=== PATIENT | male | born 1980 | race Caucasian/White ===

== ENCOUNTER 2018-03-21 21:42 | Emergency (ER) | payer OTHER ==
[~2018-03-21] VITALS: Ht 172.7 cm; Wt 68.0 kg
[2018-03-21 21:46] VITALS: BP 148/91
--- OUTSIDE RECORDS SUMMARY | 2018-03-21 21:48 | XMS REPORT ---
Author Author DIEUDONNE Ross [facility] Address Unknown Care Team Providers Care Per Diem Physical Therapist Assistant Name Role Phone DIEUDONNE Ross Unavailable PROBLEMS Unknown Problems ALLERGIES Substance Reaction Event Type Date Status N.K.D.A. Unknown Non Drug Allergy Jun, Unknown SOCIAL HISTORY No smoking Hx information available PLAN OF CARE Activity Details Follow Up prn Reason:filling/O&R #30 VITAL SIGNS MEDICATIONS No Known Medications RESULTS No Results PROCEDURES Procedure Date Ordered Related Diagnosis Body Site LTD ORAL EVALUATION - PROBLEM FOCUS Jul 12, 2016 INTRAORL-PERIAPICAL 1 FILM [id number] Jul 12, 2016 Billing Notes on claim Jul 12, 2016 IMMUNIZATIONS No Known Immunizations
[2018-03-21] MEDS ORDERED: LACTATED RINGERS 1,000 ML IV ONE ×2 (22:06→23:11)
--- NOTE | 2018-03-21 22:11 | ED Abdominal Pain ---
General Chief Complaint: Abdominal/GI Problems Stated Complaint: R SIDE ABD PAIN OFF AND ON 2 DAYS,WORSE TODAY Nursing Triage Note: RLQ PAIN WITH SOME NAUSEA. PT DENIES FEVER. PT STATES HE HAS BEEN CONSITPATED FOR 2 DAYS. Sepsis Screen: No Definite Risk Source of Information: Patient Exam Limitations: No Limitations History of Present Illness Date Seen by Provider: Mar 21, 2018 Time Seen by Provider: 21:59 Initial Comments PT ARRIVES VIA POV FROM HOME STATES HE HAS HAD AN "UPSET STOMACH" FOR THE LAST COUPLE OF DAYS--NAUSEA AND PAIN IN MID ABDOMEN STATES SINCE THIS AFTERNOON HIS SYMPTOMS HAVE GOTTEN WORSE AND PAIN IS NOW IN RLQ ALSO HAS MILD RIGHT FLANK PAIN CONTINUES TO HAVE NAUSEA, BUT NO VOMITING HAS CONTINUED TO EAT AND DRINK--HAD 1 BEER TONIGHT AFTER WORK AND HAD BAKED POTATO AND PART OF A GRILLED CHEESE SANDWICH A COUPLE OF HOURS AGO HAS BEEN CONSTIPATED THE LAST COUPLE OF DAYS, LAST BM WAS YESTERDAY MORNING NO FEVER NO URINARY SYMPTOMS PT STATES HE DID BRUISE HIS RIGHT LOWER RIBS A COUPLE OF WEEKS AGO, BUT THOSE SYMPTOMS HAVE IMPROVED. HAS NOT TAKEN ANYTHING FOR SYMPTOMS Allergies and Home Medications Allergies Coded Allergies: No Known Drug Allergies (Unverified , 03/21/18) Patient Home Medication List Home Medication List Reviewed: Yes Review of Systems Review of Systems Constitutional: no symptoms reported; No chills, No diaphoresis, No fever EENTM: No Symptoms Reported Respiratory: No Symptoms Reported Cardiovascular: No Symptoms Reported Gastrointestinal: See HPI, Abdominal Pain, Constipated; Denies Diarrhea; Nausea ; Denies Poor Fluid Intake, Denies Vomiting Genitourinary: See HPI; Denies Burning, Denies Discharge, Denies Drainage, Denies Frequency; Flank Pain; Denies Hematuria, Denies Pain, Denies Urgency Musculoskeletal: see HPI, back pain Skin: no symptoms reported Psychiatric/Neurological: No Symptoms Reported Endocrine: No Symptoms Reported Hematologic/Lymphatic: No Symptoms Reported Past Xuimspc-Xjtvlt-Epiyix Hx Patient Social History Alcohol Use: Regular Use Alcohol Beverage of Choice: Beer Recreational Drug Use: No Smoking Status: Current Everyday Smoker (CHEWS TOBACCO) Type Used: Smokeless Tobacco Recent Foreign Travel: No Contact w/Someone Who Travel: No Recent Infectious Disease Expo: No Physical Abuse: No Sexual Abuse: No Past Medical History Surgeries: No Respiratory: No Cardiac: No Neurological: No Genitourinary: No Gastrointestinal: No Musculoskeletal: No Endocrine: No HEENT: No Cancer: No Psychosocial: No Integumentary: No Blood Disorders: No Physical Exam Vital Signs Vital Signs - First Documented 03/21/18 21:46 Temp 98.8 Pulse 101 Resp 22 B/P (MAP) 148/91 (110) Pulse Ox 99 Capillary Refill : Less Than 3 Seconds Height/Weight/BMI Height: 5'8.00" Weight: 150lbs. oz. 68.951989ov; BMI Method:Stated General Appearance: WD/WN, no apparent distress HEENT: PERRL/EOMI Respiratory: normal breath sounds, no respiratory distress, no accessory muscle use Cardiovascular: regular rate, rhythm, no murmur Gastrointestinal: normal bowel sounds, soft, no organomegaly, no pulsatile mass ; No distended, No guarding, No rebound; tenderness (RLQ); No hernia, No mass Extremities: normal inspection, normal capillary refill Back: no vertebral tenderness, CVA tenderness (R) Neurologic/Psychiatric: director of analytics II-XII nml as tested, no motor/sensory deficits, alert, normal mood/affect, oriented x 3 Skin: normal color, warm/dry; No rash Progress/Results/Core Measures Results/Orders Lab Results Laboratory Tests Test 03/21/18 21:50 03/21/18 21:59 Range/Units Urine Color YELLOW Urine Clarity CLEAR Urine pH 6 5-9 Urine Specific [place] 1.010 L 1.016-1.022 Urine Protein 3+ H NEGATIVE Urine Glucose (UA) NEGATIVE NEGATIVE Urine Ketones NEGATIVE NEGATIVE Urine Nitrite NEGATIVE NEGATIVE Urine Bilirubin NEGATIVE NEGATIVE Urine Urobilinogen NORMAL NORMAL MG/DL Urine Leukocyte Esterase NEGATIVE NEGATIVE Urine RBC (Auto) NEGATIVE NEGATIVE Urine RBC RARE /HPF Urine WBC 2-5 /HPF Urine Crystals NONE /LPF Urine Bacteria NEGATIVE /HPF Urine Casts NONE /LPF Urine Mucus NEGATIVE /LPF Urine Culture Indicated NO White Blood Count 8.6 4.3-11.0 10^3/uL Red Blood Count 4.29 L 4.35-5.85 10^6/uL Hemoglobin 13.4 13.3-17.7 G/DL Hematocrit 39 L 40-54 % Mean Corpuscular Volume 90 80-99 FL Mean Corpuscular Hemoglobin 31 25-34 PG Mean Corpuscular Hemoglobin Concent 35 32-36 G/DL Red Cell Distribution Width 11.4 10.0-14.5 % Platelet Count 231 130-400 10^3/uL Mean Platelet Volume 10.1 7.4-10.4 FL Neutrophils (%) (Auto) 64 42-75 % Lymphocytes (%) (Auto) 20 12-44 % Monocytes (%) (Auto) 13 H 0-12 % Eosinophils (%) (Auto) 3 0-10 % Basophils (%) (Auto) 1 0-10 % Neutrophils # (Auto) 5.5 1.8-7.8 X 10^3 Lymphocytes # (Auto) 1.7 1.0-4.0 X 10^3 Monocytes # (Auto) 1.1 H 0.0-1.0 X 10^3 Eosinophils # (Auto) 0.2 0.0-0.3 10^3/uL Basophils # (Auto) 0.1 0.0-0.1 10^3/uL Sodium Level 142 135-145 MMOL/L Potassium Level 4.1 3.6-5.0 MMOL/L Chloride Level 105 98-107 MMOL/L Carbon Dioxide Level 25 21-32 MMOL/L Anion Gap 12 5-14 MMOL/L Blood Urea Nitrogen 21 H 7-18 MG/DL Creatinine 1.62 H 0.60-1.30 MG/DL Estimat Glomerular Filtration Rate 48 BUN/Creatinine Ratio 13 Glucose Level 104 70-105 MG/DL Calcium Level 9.3 8.5-10.1 MG/DL Corrected Calcium 9.1 8.5-10.1 MG/DL Total Bilirubin 0.7 0.1-1.0 MG/DL Aspartate Amino Transf (AST/SGOT) 21 5-34 U/L Alanine Aminotransferase (ALT/SGPT) 15 0-55 U/L Alkaline Phosphatase 77 40-136 U/L Total Protein 7.4 6.4-8.2 GM/DL Albumin 4.2 3.2-4.5 GM/DL Amylase Level 55 25-125 U/L Lipase 39 8-78 U/L My Orders Orders - NATALIE TOWNSEND DO Saline Lock/Iv-Start (03/21/18 22:06) Ct Abd/Pelv W (Appendicitis) (03/21/18 22:06) Amylase (03/21/18 22:06) Cbc With Automated Diff (03/21/18 22:06) Comprehensive Metabolic Panel (03/21/18 22:06) Lipase (9/27/18 22:06) Ua Culture If Indicated (03/21/18 22:06) Saline Lock/Iv-Start (03/21/18 22:06) Saline Lock/Iv-Start (03/21/18 22:06) Lactated Ringers (Lr 1000 Ml Iv Solution (03/21/18 22:06) Ondansetron Injection (Zofran Injectio (03/21/18 22:15) Iohexol Injection (Omnipaque 350 Mg/Ml 1 (03/21/18 22:45) Ns (Ivpb) (Sodium Chloride 0.9%) (03/21/18 22:45) Saline Lock/Iv-Start (03/21/18 23:11) Lactated Ringers (Lr 1000 Ml Iv Solution (03/21/18 23:11) Ketorolac Injection (Toradol Injection) (03/21/18 23:11) Rx-Ondansetron Po (Rx-Zofran Po) (03/21/18 23:36) Medications Given in ED Current Medications Medications Dose Ordered Sig/Doretha Route Start Time Stop Time Status Last Admin Dose Admin Iohexol 100 ml ONCE ONCE IV 03/21/18 22:45 03/21/18 22:46 DC 03/21/18 22:36 100 ML Lactated Ringer's 1,000 ml @ 0 mls/hr Q0M ONCE IV 03/21/18 22:06 03/21/18 22:08 DC 03/21/18 22:12 1,000 MLS/HR Lactated Ringer's 1,000 ml @ 0 mls/hr Q0M ONCE IV 03/21/18 23:11 03/21/18 23:13 DC 03/21/18 23:20 1,000 MLS/HR Ondansetron HCl 4 mg ONCE ONCE IVP 03/21/18 22:15 03/21/18 22:16 DC 03/21/18 22:12 4 MG Sodium Chloride 250 ml ONCE ONCE IV 03/21/18 22:45 03/21/18 22:46 DC 03/21/18 22:36 80 ML Vital Signs/I&O 03/21/18 21:46 Temp 98.8 Pulse 101 Resp 22 B/P (MAP) 148/91 (110) Pulse Ox 99 03/22/18 00:00 Intake Total 1000 ml Balance 1000 ml Blood Pressure Mean: 110 Progress Progress Note : Progress Note ALL SYMPTOMS RESOLVED AT DISMISSAL ABDOMEN IS NON-TENDER AT DISMISSAL Diagnostic Imaging Comments CT ABDOMEN/PELVIS--NO ACUTE PROCESS, PER [facility] VIA FAX @ 3102 Reviewed: Reviewed by Me Departure Impression Primary Impression: Abdominal pain Additional Impressions: POSSIBLE GASTROENTERITIS Dehydration Constipation Disposition: HOME, SELF-CARE Condition: Improved Departure-Patient Inst. Referrals: NO,LOCAL PHYSICIAN (PCP/Family) Primary Care Physician Patient Instructions: Acute Abdomen (Belly Pain), Adult (DC), Viral Gastroenteritis, Adult (DC), Dehydration, Adult (DC) Add. Discharge Instructions: CLEAR LIQUIDS--WATER, BROTH, JELLO, GATORADE NO FOOD UNTIL YOU HAVE HAD A BM AND YOUR PAIN IS GONE WHEN YOU ARE BETTER, ADD BLAND DIET TO CLEAR LIQUIDS MIRALAX EVERY 2-3 HOURS UNTIL YOU HAVE A BM FOLLOW UP WITH [facility] IN 2-3 DAYS IF NO BETTER RETURN TO ER IF WORSE All discharge instructions reviewed with patient and/or family. Voiced understanding. NATALIE TOWNSEND DO Mar 21, 2018 22:11
[2018-03-21 22:12] LABS: BILIRUBIN,URINE NEGATIVE (NEGATIVE); CLARITY,URINE CLEAR; COLOR,URINE YELLOW; GLUCOSE, URINE (UA) NEGATIVE (NEGATIVE); KETONES,URINE NEGATIVE (NEGATIVE); LEUKOCYTE ESTERASE ,URINE NEGATIVE (NEGATIVE); NITRITE,URINE NEGATIVE (NEGATIVE); PH,URINE 6 (5-9); PROTEIN,URINE 3+ (NEGATIVE); UROBILINOGEN,URINE NORMAL (NORMAL)
[2018-03-21] MEDS ORDERED: ONDANSETRON 4 MG/2 ML (SDV) Z0FRAN IVP ONE (22:15)
[2018-03-21 22:19] LABS: BACTERIA,URINE NEGATIVE /HPF; RBC,URINE RARE /HPF
[2018-03-21 22:43] LABS: BASOPHILS # (AUTO) 0.1 10^3/uL (0.0-0.1); BASOPHILS % (AUTO) 1 % (0-10); EOSINOPHILS # (AUTO) 0.2 10^3/uL (0.0-0.3); EOSINOPHILS % (AUTO) 3 % (0-10); HEMATOCRIT 39 % (40-54); HEMOGLOBIN 13.4 G/DL (13.3-17.7); LYMPHOCYTES # (AUTO) 1.7 X 10^3 (1.0-4.0); LYMPHOCYTES % (AUTO) 20 % (12-44); MEAN CORPUSCULAR HEMOGLOBIN 31 PG (25-34); MEAN CORPUSCULAR HGB CONC 35 G/DL (32-36); MEAN CORPUSCULAR VOLUME 90 FL (80-99); MEAN PLATELET VOLUME 10.1 FL (7.4-10.4); MONOCYTES # (AUTO) 1.1 X 10^3 (0.0-1.0); MONOCYTES % (AUTO) 13 % (0-12); NEUTROPHILS # (AUTO) 5.5 X 10^3 (1.8-7.8); NEUTROPHILS % (AUTO) 64 % (42-75); PLATELET COUNT 231 10^3/uL (130-400); RED BLOOD COUNT 4.29 10^6/uL (4.35-5.85); RED CELL DISTRIBUTION WIDTH 11.4 % (10.0-14.5); WHITE BLOOD COUNT 8.6 10^3/uL (4.3-11.0)
[2018-03-21] MEDS ORDERED: IOHEXOL 350 MG/ML 100 ML (OMNIPAQUE 350) VIAL IV ONE (22:45)
[2018-03-21] MEDS ORDERED: NS 250 ML (IVPB) BAG IV ONE (22:45)
[2018-03-21 23:03] LABS: ALBUMIN 4.2 GM/DL (3.2-4.5); BILIRUBIN,TOTAL 0.7 MG/DL (0.1-1.0); CALCIUM 9.3 MG/DL (8.5-10.1); CREATININE SERUM 1.62 MG/DL (0.60-1.30); POTASSIUM 4.1 MMOL/L (3.6-5.0); TOTAL PROTEIN 7.4 GM/DL (6.4-8.2)
[2018-03-21] MEDS ORDERED: KETOROLAC 30 MG/ML VIAL IVP STA (23:11)
[2018-03-21] MEDS ORDERED: RX-ONDANSETRON 4 MG ODT (ZOFRAN) PPK #4 PO STA (23:36)
--- NOTE | 2018-03-22 08:13 | Diagnostic Imaging Report ---
PROCEDURE: CT abdomen and pelvis with contrast, rule out appendicitis. TECHNIQUE: Multiple contiguous axial images were obtained through the abdomen and pelvis after the administration of intravenous contrast. INDICATION: Abdominal pain There are no prior studies available for comparison. Reportedly, there is clinical concern regarding an acute appendicitis. The appendix was visualized and measures approximately 7 MM in maximum transverse diameter (normal 8 MM or less). There may be minimal distortion of the periappendiceal fat. This appearance is not conclusive for acute appendicitis but close clinical followup is recommended. There is diverticulosis of the sigmoid and descending colon but there is no sign of acute diverticulitis. There is no pelvic mass or free fluid collection noted. Urinary bladder is grossly unremarkable as is the prostate gland. There is no evidence for a nephrolithiasis but there are patchy areas of diminished density within both kidneys on the delayed series. This appearance does raise the question of acute pyelonephritis. Clinical followup is recommended. The liver, spleen, pancreas, adrenals, aorta and inferior vena cava and gallbladder show no sign of an acute abnormality. The stomach is partially filled with fluid and particulate matter and consequently difficult to assess. The lung bases are clear. The bone windows show no evidence for a fracture or for a destructive lesion. IMPRESSION: 1. The appendix is at the upper limits of normal in size but there is no clear evidence for an acute appendicitis. Close clinical followup is recommended however. 2. The patchy enhancement of the renal cortices seen on the delayed film does raise the question of acute pyelonephritis. Correlation with the patient's urinalysis would be recommended. 3. There is no acute abnormality of the abdomen or pelvis noted otherwise. Dictated by: Dictated on workstation # [id number]
== END 2018-03-22 00:16 | disposition home or self-care (01) ==
LOC: ER 21:44
DX: K59.00 Constipation, unspecified (principal); R10.31 Right lower quadrant pain; E86.0 Dehydration; F17.220 Nicotine dependence, chewing tobacco, uncomplicated
CPT/HCPCS: 36415; 74177; 80053; 81000; 82150; 83690; 85025